=== PATIENT | male | born 1975 | race Two or more races ===

== ENCOUNTER 2019-09-28 22:11 | Inpatient (IN) | payer MEDICAID ==
[~2019-09-28] VITALS: Ht 175.3 cm; Wt 82.0 kg
[2019-09-28] MEDS ORDERED: BENZ0.5T44 PO (22:40)
[2019-09-28] MEDS ORDERED: LAMO25TA25 PO (22:40)
[2019-09-28] MEDS ORDERED: PHEN250I IV (22:40)
[2019-09-28] MEDS ORDERED: QUET200T PO (22:40)
[2019-09-29 01:50] LABS: BASOPHILS % (AUTO) 0.4 % (0.0-2.0); EOSINOPHILS % (AUTO) 2.8 % (1.0-6.0); HEMATOCRIT 39.6 % (41-53); HEMOGLOBIN 13.3 g/dL (13.5-17.5); LYMPHOCYTES # (AUTO) 2.5 K/uL (1.0-4.8); LYMPHOCYTES % (AUTO) 39.1 % (22.0-44.0); MEAN CORPUSCULAR HEMOGLOBIN 30.9 pg (26.0-34.0); MEAN CORPUSCULAR HGB CONC 33.5 G/dL (31.0-37.0); MEAN CORPUSCULAR VOLUME 92 fL (80-100); MONOCYTES # (AUTO) 0.6 K/uL (0.1-1.0); MONOCYTES % (AUTO) 9.5 % (2.0-9.0); NEUTROPHILS % (AUTO) 48.2 % (40.0-70.0); PLATELET COUNT (AUTO) 247 K/uL (150-450); RED BLOOD CELL COUNT(AUTO) 4.29 MIL/uL (4.50-5.90); RED CELL DISTRIBUTION WIDTH 14.2 % (11.5-14.5)
[2019-09-29 02:01] LABS: ANION GAP 4 mmol/L (8-16); CALCIUM, TOTAL 8.5 mg/dL (8.8-10.5); CARBON DIOXIDE 30 mmol/L (22-29); CHLORIDE 105 mmol/L (98-107); CREATININE 1.07 mg/dL (0.60-1.30); GLOMERULAR FILTR. RATE CALC > 60 mL/min (>60); GLUCOSE,RANDOM 79 mg/dL (70-110); POTASSIUM 4.1 mmol/L (3.5-5.1); SODIUM SERUM 139 mmol/L (136-145); UREA NITROGEN, BLOOD 16 mg/dL (7-18)
[2019-09-29 02:08] LABS: ALANINE AMINOTRANSFERASE 23 U/L (12-78); ALBUMIN 3.6 g/dL (3.4-5.0); ALKALINE PHOSPHATASE 53 U/L (46-116); ASPARTATE AMINOTRANSFERASE 17 U/L (15-37); BILIRUBIN,TOTAL 0.3 mg/dL (0.1-1.0); TOTAL PROTEIN, SERUM 7.3 g/dL (6.4-8.2)
[2019-09-29 02:15] LABS: PHENYTOIN (DILANTIN) < 0.5 mcg/mL (10.0-20.0)
[2019-09-29] MEDS ORDERED: LORazepam 2 MG TABLET PO PRN (02:30)
[2019-09-29] MEDS ORDERED: HALOPERIDOL 5 MG TABLET PO PRN (02:30)
[2019-09-29] MEDS ORDERED: PHENYTOIN SODIUM 100 MG ER CAPSULE PO ONE (02:45)
[2019-09-29] MEDS ORDERED: CloNIDine HCL 0.1 MG TABLET PO PRN (06:45)
[2019-09-29] MEDS ORDERED: GuaiFENesin/D-METHORPHAN [SUGAR-FREE] 200-20MG/10 ML SYRUP UDCUP PO PRN (06:45)
[2019-09-29] MEDS ORDERED: MAG HYDROX/AL HYDROX/SIMETH ES 30 ML SUSPENSION UDCUP PO PRN (06:45)
[2019-09-29] MEDS ORDERED: DOCUSATE SODIUM 100 MG CAPSULE PO PRN (06:45)
[2019-09-29] MEDS ORDERED: NICOTINE 14 MG/24 HOUR PATCH TD PRN (06:45)
[2019-09-29] MEDS ORDERED: MAGNESIUM HYDROXIDE SUSPENSION 30 ML UDCUP PO PRN (06:45)
[2019-09-29] MEDS ORDERED: ACETAMINOPHEN 325 MG TABLET PO PRN (06:45)
[2019-09-29] MEDS ORDERED: LOPERAMIDE HCL 2 MG CAPSULE PO PRN (06:45)
[2019-09-29] MEDS ORDERED: IBUPROFEN 400 MG TABLET PO PRN (06:45)
[2019-09-29] MEDS ORDERED: ONDANSETRON HCL 4 MG TABLET PO PRN (06:45)
[2019-09-29] MEDS ORDERED: PETROLATUM,WHITE 28 GM JELLY TP PRN (06:45)
[2019-09-29] MEDS ORDERED: ALBUTEROL SULFATE HFA 90 MCG/PUFF 8 GM INHALER IH PRN (06:45)
[2019-09-29 08:22] LABS: APPEARANCE,URINE CLEAR (CLEAR); BILIRUBIN,URINE NEGATIVE (NEGATIVE); GLUCOSE, URINE (UA) NEGATIVE (NEGATIVE); KETONES,URINE NEGATIVE (NEGATIVE); LEUKOCYTE ESTERASE ,URINE NEGATIVE (NEGATIVE); NITRATE,URINE NEGATIVE (NEGATIVE); OCCULT BLOOD,URINE NEGATIVE (NEGATIVE); PH,URINE 5.5 (5.0-8.0); PROTEIN,URINE NEGATIVE (NEGATIVE); UROBILINOGEN,URINE 0.2 mg/dL (<=1.0)
[2019-09-29 08:27] LABS: AMPHET/METH SCREEN,URINE POSITIVE (NEGATIVE); BARBITURATE SCREEN, URINE NEGATIVE (NEGATIVE); BENZODIAZEPINES SCREEN,URINE NEGATIVE (NEGATIVE); CANNABINOID SCREEN,URINE NEGATIVE (NEGATIVE); COCAINE SCREEN,URINE NEGATIVE (NEGATIVE); METHADONE SCREEN, URINE NEGATIVE (NEGATIVE); OPIATE SCREEN,URINE NEGATIVE (NEGATIVE)
[2019-09-29 08:36] LABS: PHENCYCLIDINE SCREEN,URINE NEGATIVE (NEGATIVE)
[2019-09-29] MEDS: LamoTRIgine 25 MG TABLET PO SCH (09:28)
[2019-09-29] MEDS: PHENYTOIN SODIUM 100 MG ER CAPSULE PO SCH ×2 (09:28→16:27)
[2019-09-29 10:53] VITALS: BP 127/78
[2019-09-29 16:00] VITALS: BP 113/73
[2019-09-29] MEDS: ZOLPIDEM TARTRATE 10 MG TABLET PO PRN (20:40)
[2019-09-30 08:44] VITALS: BP 105/66
[2019-09-30] MEDS: PHENYTOIN SODIUM 100 MG ER CAPSULE PO SCH ×2 (11:09→16:11)
[2019-09-30] MEDS: LamoTRIgine 25 MG TABLET PO SCH (11:15)
[2019-09-30 19:29] VITALS: BP 106/57
[2019-09-30] MEDS: QUEtiapine FUMARATE 200 MG TABLET PO SCH (20:14)
[2019-09-30] MEDS: BENZTROPINE MESYLATE 0.5 MG TABLET PO SCH (20:14)
[2019-09-30] MEDS: ZOLPIDEM TARTRATE 10 MG TABLET PO PRN (20:15)
[2019-10-01 02:24] VITALS: BP 112/69
[2019-10-01 09:05] VITALS: BP 120/76
[2019-10-01] MEDS: LamoTRIgine 25 MG TABLET PO SCH (09:11)
[2019-10-01] MEDS: PHENYTOIN SODIUM 100 MG ER CAPSULE PO SCH ×2 (09:11→15:55)
[2019-10-01 18:38] VITALS: BP 115/70
[2019-10-01] MEDS: QUEtiapine FUMARATE 200 MG TABLET PO SCH (20:26)
[2019-10-01] MEDS: BENZTROPINE MESYLATE 0.5 MG TABLET PO SCH (20:26)
[2019-10-01] MEDS: ZOLPIDEM TARTRATE 10 MG TABLET PO PRN (20:26)
[2019-10-02 09:00] VITALS: BP 110/52
[2019-10-02] MEDS: LamoTRIgine 25 MG TABLET PO SCH (10:07)
[2019-10-02] MEDS: PHENYTOIN SODIUM 100 MG ER CAPSULE PO SCH (10:07)
[2019-10-02] MEDS ORDERED: PHENY100 PO (14:27)
== END 2019-10-02 16:10 | disposition home or self-care (01) | DRG 885 ==
LOC: EMS 22:12 → 3EI 09-29 12:28
PROVIDERS: ADMIT Psychiatry & Neurology Child & Adolescent Psychiatry; ATTEND Psychiatry & Neurology Child & Adolescent Psychiatry
DX: F25.9 Schizoaffective disorder, unspecified (principal); F17.210 Nicotine dependence, cigarettes, uncomplicated; G40.909 Epilepsy, unspecified, not intractable, without status epilepticus; S09.90XA Unspecified injury of head, initial encounter; X58.XXXA Exposure to other specified factors, initial encounter; Y93.89 Activity, other specified; Y92.89 Other specified places as the place of occurrence of the external cause; Y99.8 Other external cause status; D64.9 Anemia, unspecified; F31.9 Bipolar disorder, unspecified; Z59.0 Homelessness; Z91.14 Patient's other noncompliance with medication regimen
CPT/HCPCS: 70450; G0480